=== PATIENT | female | born 1970 | race Caucasian/White ===

== ENCOUNTER 2019-07-14 19:18 | Emergency (ER) | payer SELFPAY ==
[~2019-07-14] VITALS: Ht 165.1 cm; Wt 94.0 kg
[2019-07-14 19:21] VITALS: Ht 165.1 cm; Wt 94.0 kg
[2019-07-14 22:24] VITALS: BP 167/89
== END 2019-07-14 22:24 | disposition home or self-care (01) ==
LOC: ED 19:18
DX: I10 Essential (primary) hypertension (principal); E78.00 Pure hypercholesterolemia, unspecified; F17.210 Nicotine dependence, cigarettes, uncomplicated; E03.9 Hypothyroidism, unspecified